=== PATIENT | male | born 1965 | race Two or more races ===

== ENCOUNTER 2021-09-24 16:52 | Emergency (ER) | payer MEDICAID ==
[~2021-09-24] VITALS: Ht 167.6 cm; Wt 86.2 kg
[2021-09-24 19:43] VITALS: BP 116/78
[2021-09-24] MEDS ORDERED: LEVO500T31 PO (20:49)
== END 2021-09-24 21:55 | disposition home or self-care (01) ==
LOC: ER 16:52
DX: N39.0 Urinary tract infection, site not specified (principal); N40.0 Benign prostatic hyperplasia without lower urinary tract symptoms; F17.210 Nicotine dependence, cigarettes, uncomplicated
CPT/HCPCS: 51702

== ENCOUNTER 2021-09-29 22:05 | Emergency (ER) | payer MEDICAID ==
[~2021-09-29] VITALS: Ht 170.2 cm; Wt 88.5 kg
[2021-09-29 22:05] VITALS: BP 127/75
[~2021-09-29 22:05] MED LIST: LEVO500T31 PO
== END 2021-09-29 23:45 | disposition left against medical advice (07) ==
LOC: ER 22:05
DX: R21 Rash and other nonspecific skin eruption (principal); Z53.21 Procedure and treatment not carried out due to patient leaving prior to being seen by health care provider

== ENCOUNTER 2021-09-30 22:08 | Emergency (ER) | payer MEDICAID ==
[~2021-09-30] VITALS: Ht 170.2 cm; Wt 88.5 kg
[2021-09-30 22:08] VITALS: BP 111/61
[2021-10-01] MEDS ORDERED: CEPH-509 PO (06:00)
== END 2021-10-01 05:41 | disposition left against medical advice (07) ==
LOC: ER 22:08
DX: R21 Rash and other nonspecific skin eruption (principal)

== ENCOUNTER 2021-10-09 19:12 | Emergency (ER) | payer MEDICAID ==
[~2021-10-09 19:12] MED LIST changes: +CEPH-509 PO
== END 2021-10-09 20:37 | disposition left against medical advice (07) ==
LOC: ER 19:12
DX: R21 Rash and other nonspecific skin eruption (principal); Z53.21 Procedure and treatment not carried out due to patient leaving prior to being seen by health care provider

== ENCOUNTER 2021-11-22 17:21 | Emergency (ER) | payer MEDICAID ==
[~2021-11-22] VITALS: Ht 170.2 cm; Wt 84.8 kg
[2021-11-22 18:24] LABS: Basophils # (auto) 0.1 10 ^3/uL (0-0.2); Basophils % (auto) 0.5 % (0.0-2.0); Eosinophils # (auto) 0 10 ^3/uL (0-0.8); Hematocrit 43.7 % (41.0-53.0); Hemoglobin 14.8 g/dL (13.5-17.5); Lymphocytes # (auto) 0.6 10 ^3/uL (0.4-5.4); Lymphocytes % (auto) 4.2 % (10.0-50.0); Mean Corpuscular Hemoglobin 29.5 pg (28.0-32.0); Mean Corpuscular Hgb Conc. 33.9 g/dL (32.0-36.0); Monocytes # (auto) 0.9 10 ^3/uL (0-1.3); Monocytes % (auto) 6.4 % (0.0-12.0); Neutrophils # (auto) 12.9 10 ^3/uL (1.6-8.6); Neutrophils % (auto) 88.9 % (37.0-80.0); Nucleated Red Blood Cells % 0.1 %; Red Blood Cells 5.02 10^6/uL (4.5-5.90); White Blood Cell 14.5 10^3/uL (4.4-10.8)
[2021-11-22] MEDS ORDERED: SODIUM CHLORIDE 0.9% 1,000 ML IV ONE (18:30)
[2021-11-22] MEDS ORDERED: ONDANSETRON HCL 4 MG/2 ML VIAL IV ONE (18:30)
[2021-11-22 18:36] LABS: Urine Bacteria FEW /hpf (None Seen); Urine Blood 2+ /uL (Negative); Urine Mucus FEW (None Seen); Urine Specific Gravity 1.032 (1.001-1.035); Urine WBC 1 /hpf (0 - 3)
[2021-11-22 18:43] LABS: Potassium 3.7 mmol/L (3.5-5.1)
[2021-11-22 18:50] LABS: Albumin 3.6 g/dL (3.4-5.0); BUN/Creatinine Ratio 13.5; Calcium 8.9 mg/dL (8.5-10.1); Total Protein 8.4 g/dL (6.4-8.2)
[2021-11-22] MEDS ORDERED: cefTRIAXone 1GM/50ML D5W 50 ML IV ONE (19:00)
[2021-11-22] MEDS ORDERED: AZIT1POW PO (21:42)
[2021-11-22 23:00] VITALS: BP 130/81
== END 2021-11-22 23:35 | disposition home or self-care (01) ==
LOC: ER 17:21
DX: J20.9 Acute bronchitis, unspecified (principal); R19.7 Diarrhea, unspecified; R11.2 Nausea with vomiting, unspecified; R51.9 Headache, unspecified; Z79.2 Long term (current) use of antibiotics; Z79.899 Other long term (current) drug therapy; Z88.8 Allergy status to other drugs, medicaments and biological substances; Z20.822 Contact with and (suspected) exposure to COVID-19
CPT/HCPCS: 36415; 74176; 80053; 81001; 82150; 83690; 85025; 87426; 96365; 96375; 99284; J0696; J2405; J7030

== ENCOUNTER 2022-01-03 15:15 | Emergency (ER) | payer MEDICAID ==
[~2022-01-03] VITALS: Ht 170.2 cm; Wt 86.0 kg
[~2022-01-03 15:15] MED LIST changes: +AZIT1POW PO
[2022-01-03 15:22] VITALS: BP 101/59
== END 2022-01-03 23:31 | disposition left against medical advice (07) ==
LOC: ER 15:15
DX: R09.81 Nasal congestion (principal); Z53.21 Procedure and treatment not carried out due to patient leaving prior to being seen by health care provider

== ENCOUNTER 2022-03-30 10:45 | Emergency (ER) | payer MEDICAID ==
[~2022-03-30] VITALS: Ht 170.2 cm; Wt 89.0 kg
[2022-03-30 10:55] VITALS: BP 114/64
== END 2022-03-30 11:56 | disposition left against medical advice (07) ==
LOC: ER 10:45
DX: R51.9 Headache, unspecified (principal); Z53.21 Procedure and treatment not carried out due to patient leaving prior to being seen by health care provider

== ENCOUNTER 2022-05-17 17:49 | Emergency (ER) | payer MEDICAID ==
[~2022-05-17] VITALS: Ht 170.2 cm; Wt 88.4 kg
[2022-05-17] MEDS ORDERED: MORPHINE SULFATE INJ 2 MG/ml SYRG IM ONE (18:45)
[2022-05-17 22:18] LABS: Basophils # (auto) 0.1 10 ^3/uL (0-0.2); Basophils % (auto) 0.6 % (0.0-2.0); Eosinophils # (auto) 0.2 10 ^3/uL (0-0.8); Eosinophils % (auto) 1.6 % (0.0-7.0); Hematocrit 43.4 % (41.0-53.0); Hemoglobin 14.7 g/dL (13.5-17.5); Lymphocytes # (auto) 3.8 10 ^3/uL (0.4-5.4); Lymphocytes % (auto) 28.2 % (10.0-50.0); Mean Corpuscular Hemoglobin 29.5 pg (28.0-32.0); Mean Corpuscular Volume 86.9 fL (80.0-100.0); Monocytes % (auto) 7.1 % (0.0-12.0); Neutrophils # (auto) 8.5 10 ^3/uL (1.6-8.6); Neutrophils % (auto) 62.5 % (37.0-80.0); Nucleated Red Blood Cells % 0.1 %; Red Cell Distribution Width 13.4 % (11.8-14.3); White Blood Cell 13.6 10^3/uL (4.4-10.8)
[2022-05-17 22:32] LABS: Albumin 3.8 g/dL (3.4-5.0); Calcium 8.5 mg/dL (8.5-10.1)
[2022-05-17 22:37] LABS: BUN/Creatinine Ratio 23.1; Bilirubin, Total 0.8 mg/dL (0.2-1.0); CRP High Sensitivity 0.07 mg/dL (< 0.3); Total Protein 7.8 g/dL (6.4-8.2)
[2022-05-17 23:54] VITALS: BP 123/60
== END 2022-05-17 23:57 | disposition home or self-care (01) ==
LOC: ER 17:49
DX: G89.29 Other chronic pain (principal); M25.552 Pain in left hip; Z88.6 Allergy status to analgesic agent; Z20.822 Contact with and (suspected) exposure to COVID-19
CPT/HCPCS: 36415; 74176; 80053; 85025; 85652; 86141; 87426; 96372; 99285; J2270

== ENCOUNTER 2022-05-22 22:02 | Emergency (ER) | payer MEDICAID ==
[~2022-05-22] VITALS: Ht 170.2 cm; Wt 95.0 kg
[2022-05-22 22:34] VITALS: BP 111/81
[2022-05-23] MEDS ORDERED: CYCL-839 PO (11:46)
[2022-05-23] MEDS ORDERED: IBUP600T28 PO (11:46)
== END 2022-05-23 05:48 | disposition left against medical advice (07) ==
LOC: ER 22:02
DX: G89.29 Other chronic pain (principal); M25.552 Pain in left hip; Z53.21 Procedure and treatment not carried out due to patient leaving prior to being seen by health care provider

== ENCOUNTER 2022-05-23 09:54 | Emergency (ER) | payer MEDICAID ==
[~2022-05-23] VITALS: Ht 170.2 cm; Wt 100.0 kg
[2022-05-23] MEDS ORDERED: ONDANSETRON ODT 4 MG TAB PO ONE (11:30)
[2022-05-23] MEDS ORDERED: MORPHINE SULFATE 4 MG/ML SYR/VIAL IM ONE (11:30)
[2022-05-23 11:32] VITALS: BP 124/73
[2022-05-23] MEDS ORDERED: CYCL-839 PO (11:46)
[2022-05-23] MEDS ORDERED: IBUP600T28 PO (11:46)
== END 2022-05-23 12:07 | disposition home or self-care (01) ==
LOC: ER 09:54
DX: G89.29 Other chronic pain (principal); Z88.8 Allergy status to other drugs, medicaments and biological substances; Z79.899 Other long term (current) drug therapy
CPT/HCPCS: 73502; 96372; 99283; J2270; Q0162

== ENCOUNTER 2022-06-19 14:42 | Emergency (ER) | payer MEDICAID ==
[~2022-06-19] VITALS: Ht 165.1 cm; Wt 89.0 kg
[~2022-06-19 14:42] MED LIST changes: +CYCL-839 PO; +IBUP600T28 PO
[2022-06-19 15:00] VITALS: BP 151/85
[2022-06-19] MEDS ORDERED: DexAMETHasone SOD PHOS 10MG/1ML VIAL INJ IM ONE (16:00)
[2022-06-19] MEDS ORDERED: MORPHINE SULFATE 4 MG/ML SYR/VIAL IM ONE (16:00)
[2022-06-19] MEDS ORDERED: KETOROLAC TROMETH 60MG/2ML VIAL IM ONE (16:00)
[2022-06-21] MEDS ORDERED: MELO7.5T9 PO (13:36)
[2022-06-21] MEDS ORDERED: TRAM-297 PO ×2 (13:36)
== END 2022-06-20 00:26 | disposition home or self-care (01) ==
LOC: ER 14:42
DX: G89.29 Other chronic pain (principal); M25.552 Pain in left hip; Z88.8 Allergy status to other drugs, medicaments and biological substances; Z79.899 Other long term (current) drug therapy

== ENCOUNTER 2022-06-20 10:08 | Emergency (ER) | payer MEDICAID ==
[~2022-06-20] VITALS: Ht 170.2 cm; Wt 87.9 kg
[2022-06-20 11:52] VITALS: BP 115/76
[2022-06-20] MEDS ORDERED: ONDANSETRON ODT 4 MG TAB PO ONE (12:30)
[2022-06-20] MEDS ORDERED: MORPHINE SULFATE 4 MG/ML SYR/VIAL IM ONE (12:30)
[2022-06-21] MEDS ORDERED: TRAM-297 PO ×2 (13:36)
[2022-06-21] MEDS ORDERED: MELO7.5T9 PO (13:36)
== END 2022-06-20 13:07 | disposition home or self-care (01) ==
LOC: ER 10:08
DX: G89.29 Other chronic pain (principal); M25.552 Pain in left hip; Z79.1 Long term (current) use of non-steroidal anti-inflammatories (NSAID); Z79.2 Long term (current) use of antibiotics; Z79.899 Other long term (current) drug therapy; Z88.8 Allergy status to other drugs, medicaments and biological substances
CPT/HCPCS: Q0162

== ENCOUNTER 2022-06-21 12:18 | Emergency (ER) | payer MEDICAID ==
[~2022-06-21] VITALS: Ht 172.7 cm; Wt 100.0 kg
[2022-06-21 12:52] VITALS: BP 143/97
[2022-06-21] MEDS ORDERED: KETOROLAC TROMETH 60MG/2ML VIAL IM ONE (13:30)
[2022-06-21] MEDS ORDERED: TRAM-297 PO ×2 (13:36)
[2022-06-21] MEDS ORDERED: MELO7.5T9 PO (13:36)
== END 2022-06-21 13:45 | disposition home or self-care (01) ==
LOC: ER 12:18
DX: M16.12 Unilateral primary osteoarthritis, left hip (principal); Z88.6 Allergy status to analgesic agent; Z88.8 Allergy status to other drugs, medicaments and biological substances
CPT/HCPCS: 99283; J1885

== ENCOUNTER 2022-08-24 22:42 | Emergency (ER) | payer MEDICAID ==
[~2022-08-24] VITALS: Ht 170.2 cm; Wt 95.5 kg
[~2022-08-24 22:42] MED LIST changes: +ACET1CAP14 PO; +CITA10TA8; +DIVA250T4; +IBU600T PO; +MELO7.5T9 PO; +QUET25TA37; +[UNRECOGNIZED DRUG - OTHER]
[2022-08-24 23:00] VITALS: BP 114/73
== END 2022-08-25 04:28 | disposition left against medical advice (07) ==
LOC: ER 22:42
DX: M25.552 Pain in left hip (principal); Z53.21 Procedure and treatment not carried out due to patient leaving prior to being seen by health care provider

== ENCOUNTER → 2022-09-08 | Emergency (ER) | payer MEDICAID ==
[~2022-09-08] MED LIST changes: +IBUP1TAB5 PO; -IBUP600T28 PO
== END | disposition left against medical advice (07) ==
LOC: ER 22:21
DX: M25.552 Pain in left hip (principal); Z53.21 Procedure and treatment not carried out due to patient leaving prior to being seen by health care provider

== ENCOUNTER 2022-09-11 16:15 | Emergency (ER) | payer MEDICAID ==
[~2022-09-11] VITALS: Ht 170.2 cm; Wt 89.2 kg
[2022-09-11] MEDS ORDERED: MORPHINE SULFATE INJ 2 MG/ml SYRG IM ONE (18:30)
[2022-09-11] MEDS ORDERED: ONDANSETRON ODT 4 MG TAB PO ONE (18:30)
[2022-09-11 20:11] VITALS: BP 106/70
== END 2022-09-11 20:20 | disposition home or self-care (01) ==
LOC: ER 16:15
DX: G89.29 Other chronic pain (principal); M25.552 Pain in left hip; M16.12 Unilateral primary osteoarthritis, left hip; Z88.8 Allergy status to other drugs, medicaments and biological substances; Z79.899 Other long term (current) drug therapy
CPT/HCPCS: 96372; 99283; J2270; Q0162

== ENCOUNTER 2022-09-16 16:21 | Emergency (ER) | payer MEDICAID ==
[~2022-09-16] VITALS: Ht 170.2 cm; Wt 97.8 kg
[2022-09-16 17:05] VITALS: BP 134/80
[2022-09-16] MEDS ORDERED: KETOROLAC TROMETH 60MG/2ML VIAL IM ONE (17:15)
== END 2022-09-16 17:17 | disposition left against medical advice (07) ==
LOC: ER 16:21
DX: G89.29 Other chronic pain (principal); M25.552 Pain in left hip; Z88.1 Allergy status to other antibiotic agents; Z88.6 Allergy status to analgesic agent
CPT/HCPCS: 99281; J1885

== ENCOUNTER 2022-10-24 18:38 | Emergency (ER) | payer MEDICAID ==
[~2022-10-24] VITALS: Ht 170.2 cm; Wt 95.5 kg
[2022-10-24 19:40] VITALS: BP 112/75; PULSE 77; RESP 18; O2SAT 94
[2022-10-27] MEDS ORDERED: CEPH500C PO (08:01)
[2022-10-27] MEDS ORDERED: TRIA0.02 TOP (08:01)
== END 2022-10-25 00:35 | disposition left against medical advice (07) ==
LOC: ER 18:38
DX: K08.89 Other specified disorders of teeth and supporting structures (principal); Z53.21 Procedure and treatment not carried out due to patient leaving prior to being seen by health care provider

== ENCOUNTER 2022-11-15 19:50 | Emergency (ER) | payer MEDICAID ==
[~2022-11-15] VITALS: Ht 170.2 cm; Wt 88.7 kg
[~2022-11-15 19:50] MED LIST changes: +CEPH500C PO; +TRIA0.02 TOP
[2022-11-15 20:05] VITALS: BP 109/74; PULSE 71; RESP 16; O2SAT 98
== END 2022-11-16 00:04 | disposition left against medical advice (07) ==
LOC: ER 19:50
DX: M25.552 Pain in left hip (principal); Z53.21 Procedure and treatment not carried out due to patient leaving prior to being seen by health care provider

== ENCOUNTER 2023-01-15 15:54 | Emergency (ER) | payer MEDICAID ==
[~2023-01-15] VITALS: Ht 172.7 cm; Wt 86.6 kg
[2023-01-15 19:20] VITALS: BP 125/77; PULSE 86; RESP 20; TEMP 97.9; O2SAT 97
== END 2023-01-15 19:29 | disposition left against medical advice (07) ==
LOC: ER 15:54
DX: M25.552 Pain in left hip (principal); Z53.21 Procedure and treatment not carried out due to patient leaving prior to being seen by health care provider

== ENCOUNTER 2023-02-11 10:03 | Emergency (ER) | payer MEDICAID ==
[~2023-02-11] VITALS: Ht 177.8 cm; Wt 90.0 kg
[2023-02-11 14:18] VITALS: BP 132/81; PULSE 81; RESP 20; TEMP 98; O2SAT 99
== END 2023-02-11 15:42 | disposition left against medical advice (07) ==
LOC: ER 10:03
DX: M25.552 Pain in left hip (principal); Z53.21 Procedure and treatment not carried out due to patient leaving prior to being seen by health care provider

== ENCOUNTER 2024-01-31 18:10 | Emergency (ER) | payer MEDICAID ==
[~2024-01-31] VITALS: Ht 170.2 cm; Wt 86.5 kg
[~2024-01-31 18:10] MED LIST changes: +DIVA-139; -DIVA250T4
[2024-01-31] MEDS: IPRATROPIUM BROM 0.5 MG/2.5ML INH SOL NEB ONE (19:06)
[2024-01-31] MEDS: ALBUTEROL SULF 2.5 MG/0.5ML(0.5%) NEB SOLN NEB ONE (19:06)
[2024-01-31 19:35] LABS: Chloride 108 mmol/L (98-107); Potassium 4.2 mmol/L (3.5-5.1); Sodium 138 mmol/L (136-145)
[2024-01-31 19:36] LABS: Anion Gap 6 (5-15); Carbon Dioxide 24 mmol/L (20-31)
[2024-01-31] MEDS: predniSONE 20 MG TAB PO ONE (19:36)
[2024-01-31 19:37] LABS: Calcium 9.6 mg/dL (8.7-10.4)
[2024-01-31 19:41] LABS: BUN/Creatinine Ratio 15.4 (10.0-20.0); Blood Urea Nitrogen 14 mg/dL (9-23); Glucose 100 mg/dL (74-106)
[2024-01-31 19:50] LABS: Basophils # (auto) 0 10 ^3/uL (0-0.2); Basophils % (auto) 0.7 % (0.0-2.0); Eosinophils # (auto) 0.5 10 ^3/uL (0-0.8); Eosinophils % (auto) 6.7 % (0.0-7.0); Hematocrit 45.3 % (41.0-53.0); Hemoglobin 15.4 g/dL (13.5-17.5); Lymphocytes # (auto) 2.3 10 ^3/uL (0.4-5.4); Lymphocytes % (auto) 32.7 % (10.0-50.0); Mean Corpuscular Hemoglobin 29.9 pg (28.0-32.0); Mean Corpuscular Hgb Conc. 33.9 g/dL (32.0-36.0); Monocytes # (auto) 0.6 10 ^3/uL (0-1.3); Neutrophils # (auto) 3.7 10 ^3/uL (1.6-8.6); Neutrophils % (auto) 51.9 % (37.0-80.0); Nucleated Red Blood Cells % 0.2 %; Platelet Count (auto) 210 10^3/uL (140-450); Red Blood Cells 5.14 10^6/uL (4.5-5.90); Red Cell Distribution Width 13.6 % (11.8-14.3); White Blood Cell 7.1 10^3/uL (4.4-10.8)
[2024-01-31 19:53] VITALS: BP 125/68; PULSE 79; RESP 19; TEMP 98.1; O2SAT 97
[2024-01-31 20:43] LABS: COVID19 ANTIGEN SOFIA FIA NEGATIVE (NEGATIVE); Rapid Influenza A Negative (Negative); Rapid Influenza B Negative (Negative)
[2024-01-31] MEDS ORDERED: ALBUAER3 IN (21:05)
[2024-01-31] MEDS ORDERED: TIOT1AER2 IN (21:05)
[2024-01-31] MEDS ORDERED: DEXT1SYP9 PO (21:05)
== END 2024-01-31 21:19 | disposition home or self-care (01) ==
LOC: ER 18:10
DX: J44.1 Chronic obstructive pulmonary disease with (acute) exacerbation (principal); F12.20 Cannabis dependence, uncomplicated; F17.210 Nicotine dependence, cigarettes, uncomplicated; Z20.822 Contact with and (suspected) exposure to COVID-19
CPT/HCPCS: 36415; 71045; 80048; 83880; 85025; 87426; 87804; 94640; 99284; J7512

== ENCOUNTER 2024-03-17 18:42 | Emergency (ER) | payer MEDICAID ==
[~2024-03-17] VITALS: Ht 170.2 cm; Wt 87.6 kg
[~2024-03-17 18:42] MED LIST changes: +ALBUAER3 IN; +DEXT1SYP9 PO; +TIOT1AER2 IN
[2024-03-17 20:03] VITALS: BP 132/91; PULSE 71; RESP 18; O2SAT 99
--- NOTE | 2024-03-17 20:29 | ED.PDOC ---
History of Present Illness HPI Comments 58-year-old male with PMHx Chronic Lower Back Pain presents with a chief complaint of lower back pain. Patient is requesting pain management for his lower back pain. Patient already is seen by pain management and receives [place] for his pain. Patient is stating that the pain medication he has is not working. Patient was scheduled for hip replacement surgery but states that he "tapped out" twice and didn't go through with the surgery. Chief Complaint: Back Pain Time Seen by MD: 20:20 Primary Care Provider: CHASTITY Reviewed Notes: Medications, Allergies Allergies: Coded Allergies: Haloperidol (Verified Allergy, Unknown, 11/22/21) Home Meds Active Scripts Dextromethorphan-Guaifenesin (Robitussin-Dm) 10 Ml Sr, 10 ML PO Q6HPRN PRN for 5 Days, #1 SYP Prov:FLORENCIO ESCOBAR RESIDENT 01/31/24 Albuterol Sulfate (VENTOLIN MDI) 90 Mcg Ih, 90 MCG IN Q2HPRN PRN for 30 Days, #1 INH 2 Refills Prov:FLORENCIO ESCOBAR RESIDENT 01/31/24 Tiotropium [place] Monohydrate (Spiriva Respimat) 1.25 Mcg/Act Aer, 1.25 MCG IN DAILY for 30 Days, #1 AER 1 Refill Prov:FLORENCIO ESCOBAR RESIDENT 01/31/24 Cephalexin Monohydrate (Cephalexin) 500 Mg Cap, 1 CAP PO QID, #40 CAP Prov:TINO JEAN 10/27/22 Triamcinolone Acetonide (Triamcinolone Acetonide) 0.025 % Cre, 1 APPLIC TOP BID, #30 GRAMS Prov:TINO JEAN 10/27/22 Meloxicam (Mobic) 7.5 Mg Tab, 7.5 MG PO BID, #30 TAB Prov:TINO JEAN 06/21/22 Ibuprofen Micronized (Ibuprofen) 600 Mg Tab, 600 MG PO Q8HPRN PRN, #30 TAB 0 Refills Prov:RACHEL KRAUSP 05/23/22 Cyclobenzaprine Hcl (Cyclobenzaprine Hcl) 10 Mg Tab, 10 MG PO TID, #12 TAB 0 Refills Prov:RACHEL KRAUS PUMP ATTENDANT 05/23/22 Azithromycin (Zithromax) 1 Gm Pow, 1 PACK PO ONCE, #1 PACK Prov:GALE NORMAN MD 11/22/21 Cephalexin (KEFLEX 500) 500 Mg Cap, 1 CAP PO TID for 7 Days, #21 CAP Prov:SHERRY WARD MD 10/01/21 Levofloxacin (Levaquin) 500 Mg Tab, 500 MG PO DAILY, #7 TAB Prov:PHYLLIS JIMENEZ MD 09/24/21 Ibuprofen Micronized (MOTRIN TABLET) 600 Mg Tb, 800 MG PO TID PRN for 7 Days, #21 TAB 0 Refills *Black box warning-NSAIDS can increase risk of [place] & hypertension, GI irritation, ulceration, bleed, perferation. Do not use post cardiac surgery. Use short duration/lowest effective dose. Prov:LORENZA MAHAJAN DO 06/27/21 Acetaminophen (Tylenol) 325 Mg Cap, 1000 MG PO Q6HP PRN for 7 Days, #30 CAP 0 Refills Prov:LORENZA MAHAJAN DO 06/27/21 Reported Medications [Doxipam] No Conflict Check 07/02/12 Quetiapine Fumerate (Seroquel) 25 Mg Tab 02/04/11 Citalopram Hydrobromide (Celexa) 10 Mg Tab 02/04/11 Divalproex Sodium (Depakote) 250 Mg Tab 02/04/11 Information Source: Patient Mode of Arrival: Ambulatory Severity: Moderate Timing: Days Duration: Since onset Prehospital treatment: None Past Medical History PAST MEDICAL HISTORY: COPD Surgical History: Denies all surgeries Family History Family History: Reviewed,noncontributory to illness Social History Smoker: Cigarettes, Less Than 1 Pack/Day Alcohol: Denies ETOH Use Drugs: Marijuana Lives In: Home Constitutional: denies: chills, diaphoresis, fatigue, fever, malaise, sweats, weakness, others EENTM: denies: blurred vision, double vision, ear bleeding, ear discharge, ear drainage, ear pain, ear ringing, eye pain, eye redness, hearing loss, mouth pain, mouth swelling, nasal discharge, nose bleeding, nose congestion, nose pain, photophobia, tearing, throat pain, throat swelling, voice changes, others Respiratory: denies: cough, hemoptysis, orthopnea, SOB at rest, shortness of breath, SOB with excertion, stridor, wheezing, others Cardiovascular: denies: chest pain, dizzy spells, diaphoresis, Dyspnea on exertion, edema, irregular heart beat, left arm pain, lightheadedness, palpitations, PND, syncope, others Gastrointestinal: denies: abdomen distended, abdominal pain, blood streaked bowels, constipated, diarrhea, dysphagia, difficulty swallowing, hematemesis, melena, nausea, poor appetite, poor fluid intake, rectal bleeding, rectal pain, vomiting, others Genitourinary: denies: burning, dysuria, flank pain, frequency, hematuria, incontinence, penile discharge, penile sore, pain, testicle pain, testicle swelling, urgency, others Neurological: denies: dizziness, fainting, headache, left sided numbness, left sided weakness, numbness, paresthesia, pre-existing deficit, right sided numbness, right sided weakness, seizure, speech problems, tingling, tremors, weakness, others Musculoskeletal: reports: back pain; denies: gout, joint pain, joint swelling, muscle pain, muscle stiffness, neck pain, others Integumetry: denies: bruises, change in color, change in hair/nails, dryness, laceration, lesions, lumps, rash, wounds, others Allergic/Immunocompromised: denies: Difficulty Healing, Frequent Infections, Hives, Itching, others Hematologic/Lymphatic: denies: anemia, blood clots, easy bleeding, easy bruising, swollen glands, others Endocrine: denies: excessive hunger, excessive sweating, excessive thirst, excessive urination, flushing, intolerance to cold, intolerance to heat, unexplained weight gain, unexplained weight loss, others Psychiatric: denies: anxiety, bipolar disorder, depression, hopeless, panic disorder, schizophrenia, sleepless, suicidal, others All Other Systems: Reviewed and Negative Physical Exam General Appearance: Mild Distress, Normal, Other (MID LUMBAR TENDERNESS) HEENT: Normal ENT Inspection, Pharynx Normal, TMs Normal Neck: Full Range of Motion, Non-Tender, Normal, Normal Inspection Respiratory: Chest Non-Tender, Lungs Clear, No Accessory Muscle Use, No Respiratory Distress, Normal Breath Sounds Cardiovascular: No Edema, No JVD, No Murmur, No Gallop, Normal Peripheral Pulses, Regular Rate/Rhythm Breast Exam: Deferred Gastrointestinal: No Organomegaly, Non Tender, No Pulsatile Mass, Normal Bowel Sounds, Soft Genitalia: Deferred Pelvic: Deferred Rectal: Deferred Extremities: No calf tenderness, Normal capillary refill, Normal inspection, Normal range of motion, Non-tender, No pedal edema Musculoskeletal : Apperance: Normal Neurologic: Alert, hospital unit clerk II-XII nml as Tested, No Motor Deficits, Normal Affect, Normal Mood, No Sensory Deficits Cerebellar Function: Normal Reflexes: Normal Skin: Dry, Normal Color, Warm Lymphatic: No Adenopathy Was a procedure done? Was a procedure done?: No Differential Dx Considerations may include: Skeletal strain X-Ray, Labs, Meds, VS Vital Signs Date Time Temp Pulse Resp B/P (MAP) Pulse Ox O2 Delivery O2 Flow Rate FiO2 03/17/24 20:03 98.7 71 18 132/91 (105) 99 Time of 1ST Reevaluation: 20:50 Reevaluation 1ST: Unchanged Patient Education/Counseling: Diagnosis, Treatment, Prognosis Family Education/Counseling: No Family Present Departure 1 Departure Time of Disposition: 21:28 (Patient does not have any red flags for back pain. We will discharge patient home with outpatient follow up . Patient is already in with pain management) Impression: Primary Impression: Lumbar sprain Qualified Codes: S33.5XXA - Sprain of ligaments of lumbar spine, initial encounter Additional Impression: Musculoskeletal pain Disposition: 01 HOME / SELF CARE / HOMELESS Condition: Stable Additional Instructions: You likely have musculoskeletal pain. You should continue to follow up with pain management. You were prescribed muscle relaxers. If symptoms worsen or if any other concerns please return to the emergency room. e-Prescriptions Cyclobenzaprine Hcl (Cyclobenzaprine Hcl) 5 Mg Tab 1 TAB PO TID PRN for 4 Days, #12 TAB Prov: EARNEST BAY MD 03/17/24 Discharged With: Self Critical Care Note Critical Care Time?: No Stability Stability form required: No I personally scribed for EARNEST BAY MD ([email or web address]) on 03/17/24 at 20:29. Electronically submitted by Doron Marsh ([email or web address]). EARNEST BAY MD Mar 17, 2024 20:29
[2024-03-17] MEDS ORDERED: HYDROcodone-ACET 10/325MG TAB PO ONE (20:45)
[2024-03-17] MEDS ORDERED: diazePAM 5 MG TAB PO ONE (20:45)
[2024-03-17] MEDS ORDERED: CYCL-837 PO (21:31)
== END 2024-03-18 03:25 | disposition home or self-care (01) ==
LOC: ER 18:42
DX: S33.5XXA Sprain of ligaments of lumbar spine, initial encounter (principal); M79.10 Myalgia, unspecified site; J44.9 Chronic obstructive pulmonary disease, unspecified; F17.210 Nicotine dependence, cigarettes, uncomplicated; Z79.1 Long term (current) use of non-steroidal anti-inflammatories (NSAID); Z79.899 Other long term (current) drug therapy; Z88.8 Allergy status to other drugs, medicaments and biological substances; X50.1XXA Overexertion from prolonged static or awkward postures, initial encounter; Y93.89 Activity, other specified; Y92.89 Other specified places as the place of occurrence of the external cause; Y99.8 Other external cause status

== ENCOUNTER 2024-05-18 16:53 | Emergency (ER) | payer MEDICAID ==
[~2024-05-18] VITALS: Ht 170.2 cm; Wt 87.3 kg
[~2024-05-18 16:53] MED LIST changes: +CYCL-837 PO
--- NOTE | 2024-05-18 18:04 | ED.PDOC ---
Musculoskeletal HPI Comments 58-year-old male with no pertinent past medical history, presents to ED for left hip pain x3 days, progressively worsening. Patient states that he has been having chronic hip pain due to severe arthritis, and he states that the pain has been getting worse. He states that he was supposed to have hip replacement surgery, however he decided not to go through with it. Patient denies any recent trauma or injury. He also denies any fever, chills, nausea, vomiting, numbness, tingling. Pain is localized to his left hip and does not radiate. Patient states that he received an MRI today through his PCP. He currently rates the pain as 8/10 in severity. Patient reports taking Black without relief of symptoms. He denies any alleviating or aggravating factors. Chief Complaint: Lower Extremity Time Seen by MD: 17:00 Primary Care Provider: CHASTITY Reviewed Notes: Nurses Notes, Medications, Allergies Allergies: Coded Allergies: Haloperidol (Verified Allergy, Unknown, 11/22/21) Home Meds Active Scripts Cyclobenzaprine Hcl (Cyclobenzaprine Hcl) 5 Mg Tab, 1 TAB PO TID PRN for 4 Days, #12 TAB Prov:EARNEST BAY MD 03/17/24 Dextromethorphan-Guaifenesin (Robitussin-Dm) 10 Ml Sr, 10 ML PO Q6HPRN PRN for 5 Days, #1 SYP Prov:FLORENCIO ESCOBAR 01/31/24 Albuterol Sulfate (VENTOLIN MDI) 90 Mcg Ih, 90 MCG IN Q2HPRN PRN for 30 Days, #1 INH 2 Refills Prov:FLORENCIO ESCOBAR 01/31/24 Tiotropium [place] Monohydrate (Spiriva Respimat) 1.25 Mcg/Act Aer, 1.25 MCG IN DAILY for 30 Days, #1 AER 1 Refill Prov:FLORENCIO ESCOBAR 01/31/24 Cephalexin Monohydrate (Cephalexin) 500 Mg Cap, 1 CAP PO QID, #40 CAP Prov:TINO JEAN 10/27/22 Triamcinolone Acetonide (Triamcinolone Acetonide) 0.025 % Cre, 1 APPLIC TOP BID, #30 GRAMS Prov:TINO JEAN 10/27/22 Meloxicam (Mobic) 7.5 Mg Tab, 7.5 MG PO BID, #30 TAB Prov:TINO JEAN 06/21/22 Ibuprofen Micronized (Ibuprofen) 600 Mg Tab, 600 MG PO Q8HPRN PRN, #30 TAB 0 Refills Prov:RACHEL KRAUS [facility] 05/23/22 Cyclobenzaprine Hcl (Cyclobenzaprine Hcl) 10 Mg Tab, 10 MG PO TID, #12 TAB 0 Refills Prov:RACHEL KRAUS [employer] SERVICES MANAGER 05/23/22 Azithromycin (Zithromax) 1 Gm Pow, 1 PACK PO ONCE, #1 PACK Prov:GALE NORMAN MD 11/22/21 Cephalexin (KEFLEX 500) 500 Mg Cap, 1 CAP PO TID for 7 Days, #21 CAP Prov:SHERRY WARD MD 10/01/21 Levofloxacin (Levaquin) 500 Mg Tab, 500 MG PO DAILY, #7 TAB Prov:PHYLLIS JIMENEZ MD 09/24/21 Ibuprofen Micronized (MOTRIN TABLET) 600 Mg Tb, 800 MG PO TID PRN for 7 Days, #21 TAB 0 Refills *Black box warning-NSAIDS can increase risk of [place] & hypertension, GI irritation, ulceration, bleed, perferation. Do not use post cardiac surgery. Use short duration/lowest effective dose. Prov:LORENZA MAHAJAN DO 06/27/21 Acetaminophen (Tylenol) 325 Mg Cap, 1000 MG PO Q6HP PRN for 7 Days, #30 CAP 0 Refills Prov:LORENZA MAHAJAN DO 06/27/21 Reported Medications [Doxipam] No Conflict Check 07/02/12 Quetiapine Fumerate (Seroquel) 25 Mg Tab 02/04/11 Citalopram Hydrobromide (Celexa) 10 Mg Tab 02/04/11 Divalproex Sodium (Depakote) 250 Mg Tab 02/04/11 Mode of Arrival: Ambulatory Past Medical History PAST MEDICAL HISTORY: COPD Surgical History: Denies all surgeries Family History Family History: Reviewed,noncontributory to illness Social History Smoker: Cigarettes, Less Than 1 Pack/Day Alcohol: Denies ETOH Use Drugs: Marijuana Lives In: Home Constitutional: denies: chills, diaphoresis, fatigue, fever, malaise, sweats, weakness, others EENTM: denies: blurred vision, double vision, ear bleeding, ear discharge, ear drainage, ear pain, ear ringing, eye pain, eye redness, hearing loss, mouth pain, mouth swelling, nasal discharge, nose bleeding, nose congestion, nose pain, photophobia, tearing, throat pain, throat swelling, voice changes, others Respiratory: denies: cough, hemoptysis, orthopnea, SOB at rest, shortness of breath, SOB with excertion, stridor, wheezing, others Cardiovascular: denies: chest pain, dizzy spells, diaphoresis, Dyspnea on exer tion, edema, irregular heart beat, left arm pain, lightheadedness, palpitations, PND, syncope, others Gastrointestinal: denies: abdomen distended, abdominal pain, blood streaked bowels, constipated, diarrhea, dysphagia, difficulty swallowing, hematemesis, melena, nausea, poor appetite, poor fluid intake, rectal bleeding, rectal pain, vomiting, others Genitourinary: denies: burning, dysuria, flank pain, frequency, hematuria, incontinence, penile discharge, penile sore, pain, testicle pain, testicle swelling, urgency, others Neurological: denies: dizziness, fainting, headache, left sided numbness, left sided weakness, numbness, paresthesia, pre-existing deficit, right sided numbness, right sided weakness, seizure, speech problems, tingling, tremors, weakness, others Musculoskeletal: reports: joint pain; denies: back pain, gout, joint swelling, muscle pain, muscle stiffness, neck pain, others Integumetry: denies: bruises, change in color, change in hair/nails, dryness, laceration, lesions, lumps, rash, wounds, others Allergic/Immunocompromised: denies: Difficulty Healing, Frequent Infections, Hives, Itching, others Hematologic/Lymphatic: denies: anemia, blood clots, easy bleeding, easy bruising, swollen glands, others Endocrine: denies: excessive hunger, excessive sweating, excessive thirst, excessive urination, flushing, intolerance to cold, intolerance to heat, unexplained weight gain, unexplained weight loss, others Psychiatric: denies: anxiety, bipolar disorder, depression, hopeless, panic disorder, schizophrenia, sleepless, suicidal, others All Other Systems: Reviewed and Negative Physical Exam General Appearance: No Apparent Distress, Normal HEENT: Normal ENT Inspection, Pharynx Normal, TMs Normal Neck: Full Range of Motion, Non-Tender, Normal, Normal Inspection Respiratory: Chest Non-Tender, Lungs Clear, No Accessory Muscle Use, No Respiratory Distress, Normal Breath Sounds Cardiovascular: No Edema, No JVD, No Murmur, No Gallop, Normal Peripheral Pulses, Regular Rate/Rhythm Breast Exam: Deferred Gastrointestinal: No Organomegaly, Non Tender, No Pulsatile Mass, Normal Bowel Sounds, Soft Genitalia: Deferred Pelvic: Deferred Rectal: Deferred Extremities: No calf tenderness, Normal capillary refill, Normal inspection, Normal range of motion, Non-tender, No pedal edema Musculoskeletal : Location: Left Extremity Location: Hip (No tenderness to palpation to the left hip. Full range of motion to the left hip. Patient is ambulatory with a cane.) Apperance: Normal Neurologic: Alert, race engine builder II-XII nml as Tested, No Motor Deficits, Normal Affect, Normal Mood, No Sensory Deficits Cerebellar Function: Normal Reflexes: Normal Skin: Dry, Normal Color, Warm Lymphatic: No Adenopathy Was a procedure done? Was a procedure done?: No Differential Diagnosis EXT Differential Diagnosis: Deep Vein Thrombosis, Fracture, Sprain, Dislocation, Neurovascular injury, Arthritis X-Ray, Labs, Meds, VS Vital Signs Date Time Temp Pulse Resp B/P (MAP) Pulse Ox O2 Delivery O2 Flow Rate FiO2 05/18/24 17:11 97.6 85 17 134/77 (96) 98 X-Ray, Labs, Meds, VS Comment MDM: Patient with history as above presented with left hip pain. History obtained from patient. Patient was nontoxic, stable, afebrile, ambulatory, no acute distress. Exam as above. Reviewed external records. All findings were discussed with the patient. Differential diagnosis considered. Overall presentation is consistent with left hip arthritis. Low suspicion for acute fracture, dislocation, septic joint. Patient was treated with Toradol with improvement in symptoms. Patient was reevaluated and vital signs were reviewed. Consideration was given for admission, but the patient was stable for outpatient management. Patient already has Black prescription for pain management, therefore no more pain medication was prescribed.. Disposition: Discussed the need to follow up diagnostics, including incidental findings. Discharged the patient with instructions to obtain outpatient follow up in 1-2 days of today's symptoms and findings, with strict return precautions if patient develops new or worsening symptoms. This medical document was created using the [employer] dictation system. Although this document has been carefully reviewed, there may still be some phonetic and typographical errors, which are due to imperfections of the software program, and do not reflect any compromise in the patient's medical care. Time of 1ST Reevaluation: 18:03 Reevaluation 1ST: Improved Patient Education/Counseling: Diagnosis, Treatment, Prognosis, Need For Follow Up Family Education/Counseling: No Family Present Departure 1 Departure Time of Disposition: 18:02 Impression: Primary Impression: Arthritis of left hip Disposition: 01 HOME / SELF CARE / HOMELESS Condition: Fair Critical Care Note Critical Care Time?: No Stability Stability form required: No Heart Score Heart Score: Heart Score Response (Comments) Value History N/A 0 EKG N/A 0 Age N/A 0 Risk Factors N/A 0 Troponin N/A 0 Total 0 LAURA BARNETT [facility] May 18, 2024 18:04
[2024-05-18] MEDS: KETOROLAC TROMETH 30 MG/ML 1ML VIAL IM ONE (20:16)
[2024-05-18 20:19] VITALS: BP 115/74; PULSE 67; RESP 18; TEMP 97.6; O2SAT 98
== END 2024-05-18 20:36 | disposition home or self-care (01) ==
LOC: ER 16:53
DX: M16.12 Unilateral primary osteoarthritis, left hip (principal); J44.9 Chronic obstructive pulmonary disease, unspecified; F17.210 Nicotine dependence, cigarettes, uncomplicated; F12.90 Cannabis use, unspecified, uncomplicated; Z88.8 Allergy status to other drugs, medicaments and biological substances; Z79.899 Other long term (current) drug therapy
CPT/HCPCS: 96372; 99283; J1885

== ENCOUNTER → 2024-10-15 | Outpatient (CLI) | payer MEDICAID ==
[2024-10-15 15:04] LABS: Hemoglobin 15.7 g/dL (13.5-17.5)
[2024-10-15 15:09] LABS: Urine Protein, UAD 1+ (Negative)
[2024-10-15 15:16] LABS: INR 1.01 (0.9-1.15); Partial Thromboplastin Time 26.3 SEC (24.5-34.5); Prothrombin Time 10.7 sec (9.3-11.8)
[2024-10-15 15:32] LABS: Hematocrit 45.4 % (41.0-53.0); Mean Corpuscular Hemoglobin 29.9 pg (28.0-32.0); Mean Corpuscular Volume 86.7 fL (80.0-100.0); Nucleated Red Blood Cells % 0.1 %
[2024-10-15 16:04] LABS: Alanine Aminotransferase 10 U/L (7-40); Albumin 4.5 g/dL (3.2-4.8); Alkaline Phosphatase 91 U/L (46-116); Anion Gap 8 (5-15); BUN/Creatinine Ratio 16.0 (10.0-20.0); Bilirubin, Total 0.9 mg/dL (0.2-1.0); Blood Urea Nitrogen 16 mg/dL (9-23); Calcium 9.9 mg/dL (8.7-10.4); Carbon Dioxide 24 mmol/L (20-31); Chloride 105 mmol/L (98-107); Glucose 89 mg/dL (74-106); Potassium 4.2 mmol/L (3.5-5.1); Sodium 137 mmol/L (136-145); Total Protein 7.4 g/dL (5.7-8.2)
== END | disposition home or self-care (01) ==
LOC: LAB 14:36
PROVIDERS: ATTEND Nurse Practitioner
DX: Z01.812 Encounter for preprocedural laboratory examination (principal)
CPT/HCPCS: 36415; 80053; 81001; 85025; 85610; 85730